=== PATIENT | male | born 1990 ===

== ENCOUNTER 2021-07-23 07:40 | Emergency (ER) | payer MEDICAID, OTHER ==
[~2021-07-23] VITALS: Ht 172.7 cm; Wt 90.7 kg
[2021-07-23 08:04] VITALS: BP 140/101
== END 2021-07-23 09:34 | disposition home or self-care (01) ==
LOC: ER 07:40
DX: S46.911A Strain of unspecified muscle, fascia and tendon at shoulder and upper arm level, right arm, initial encounter (principal); S29.011A Strain of muscle and tendon of front wall of thorax, initial encounter; S83.91XA Sprain of unspecified site of right knee, initial encounter; H60.91 Unspecified otitis externa, right ear; J45.909 Unspecified asthma, uncomplicated; Z88.8 Allergy status to other drugs, medicaments and biological substances; V19.9XXA Pedal cyclist (driver) (passenger) injured in unspecified traffic accident, initial encounter; Y93.89 Activity, other specified; Y92.89 Other specified places as the place of occurrence of the external cause; Y99.8 Other external cause status
CPT/HCPCS: 71046; 73030; 73562